=== PATIENT | female | born 1950 | race Hispanic/Latino ===

== ENCOUNTER 2018-02-27 06:37 | Outpatient (CLI) | payer MEDICARE | END 2018-02-27 06:38 | disposition home or self-care (01) | LOC: BICULT 06:37 | PROVIDERS: ATTEND Nurse Practitioner Family | DX: N93.8 Other specified abnormal uterine and vaginal bleeding (principal); N88.8 Other specified noninflammatory disorders of cervix uteri | CPT/HCPCS: 76856 ==

== ENCOUNTER 2018-05-10 09:55 | Emergency (ER) | payer MEDICARE ==
[2018-05-10] MEDS ORDERED: Meclizine HCl 25 MG TAB ONE (10:42)
[2018-05-10 10:46] LABS: #Basophils 0.1 thou/uL (0.0-0.2); #Eosinphils 0.1 thou/uL (0.0-0.7); #Lymphocytes 1.4 thou/uL (1.20-3.40); #Monocytes 0.3 thou/uL (0.11-0.59); #Neutrophils 6.8 thou/uL (1.40-6.50); %Basophils 0.7 % (0.0-1.0); %Eosinophils 1.4 % (0.0-10.0); %Lymphocytes 16.1 % (21.0-51.0); %Monocytes 3.8 % (0.0-10.0); Hemoglobin 13.7 g/dL (12.0-16.0); Mean Corpuscular HGB CONC 30.7 g/dL (32.0-36.0); Mean Corpuscular Hemoglobin 26.8 pg (27.0-31.0); Mean Corpuscular Volume 87.3 fL (78.0-98.0); Mean Platelet Volume 9.3 fL (7.4-10.4); Platelet Count 243 thou/uL (130-400); RBC Distribution Width 13.1 % (11.5-14.5); Red Blood Cell (RBC) Count 5.11 mill/uL (4.20-5.40); White Blood Cell (WBC) Count 8.8 thou/uL (4.8-10.8)
[2018-05-10] MEDS ORDERED: Ondansetron ODT 4 MG TAB ONE ×2 (10:46→10:47)
[2018-05-10 11:13] LABS: Troponin I 0.011 ng/mL (< 0.028)
[2018-05-10 11:17] LABS: ALT (SGPT) 19 U/L (8-55); AST (SGOT) 20 U/L (5-34); Albumin 3.9 g/dL (3.4-4.8); Alkaline Phosphatase 86 U/L (40-150); Anion Gap 14 mmol/L (10-20); BUN (Urea Nitrogen) 13 mg/dL (9.8-20.1); Bilirubin, Total 0.4 mg/dL (0.2-1.2); Calc. Creatinine Clearance 0 mL/min (70-130); Calcium 9.3 mg/dL (7.8-10.44); Carbon Dioxide 27 mmol/L (23-31); Chloride 101 mmol/L (98-107); Estimated GFR-MDRD 55; Globulin 4.2 g/dL (2.4-3.5); Glucose 149 mg/dL (80-115); Potassium 3.6 mmol/L (3.5-5.1); Protein, Total 8.1 g/dL (6.0-8.3); Sodium 138 mmol/L (136-145)
--- NOTE | 2018-05-10 12:17 | RAD ---
CHEST 1 VIEW: Date: 05/10/18 HISTORY: Dizziness, high blood pressure, nausea, and vomiting. COMPARISON: Radiograph from 2011. FINDINGS: Heart size enlarged. Mild pulmonary venous congestion. No pneumothorax or large effusion. IMPRESSION: Cardiomegaly and mild pulmonary venous congestion. POS: OFF
--- NOTE | 2018-05-10 12:28 | CT ---
BRAIN CT WITHOUT IV CONTRAST: History: 67-year-old female with history of dizziness when standing, room spinning, left ear pain with hearing changes for 3 months. 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 FINDINGS: No focal mass or midline shift. No intra or extraaxial hemorrhage. Sinuses and mastoids are clear. Th e sella turcica appears to be at least borderline enlarged and has a somewhat empty appearance, possi andres related to at least a partially empty sella, not completely evaluated on this CT, if that is a cl inical concern, a follow up MRI study might be of benefit. IMPRESSION: No significant acute intracranial process. No mass or bleed. Borderline sized possibly at least parti ally empty sella. POS: [facility]
== END 2018-05-10 13:00 | disposition home or self-care (01) ==
LOC: ERS 09:55
DX: H81.392 Other peripheral vertigo, left ear (principal); I10 Essential (primary) hypertension; Z86.73 Personal history of transient ischemic attack (TIA), and cerebral infarction without residual deficits
CPT/HCPCS: 70450; 71045; 80053; 84484; 85025; 93005; 94760; Q0162

== ENCOUNTER 2019-12-05 12:09 | Emergency (ER) | payer MEDICARE ==
[2019-12-05] MEDS ORDERED: Acetaminophen 500 MG TAB ONE (13:22)
[2019-12-05 13:26] LABS: #Eosinphils 0.1 thou/uL (0.0-0.7); #Lymphocytes 1.1 thou/uL (1.20-3.40); #Monocytes 0.7 thou/uL (0.11-0.59); #Neutrophils 7.8 thou/uL (1.40-6.50); %Basophils 0.4 % (0.0-1.0); %Eosinophils 1.2 % (0.0-10.0); %Lymphocytes 11.6 % (21.0-51.0); %Monocytes 6.7 % (0.0-10.0); %Neutrophils 80.2 % (42.0-75.0); Hemoglobin 12.7 g/dL (12.0-16.0); Mean Corpuscular HGB CONC 31.4 g/dL (32.0-36.0); Mean Corpuscular Hemoglobin 27.9 pg (27.0-31.0); Mean Corpuscular Volume 88.8 fL (78.0-98.0); Mean Platelet Volume 9.4 fL (7.4-10.4); Platelet Count 224 thou/uL (130-400); RBC Distribution Width 13.5 % (11.5-14.5); Red Blood Cell (RBC) Count 4.54 mill/uL (4.20-5.40); White Blood Cell (WBC) Count 9.7 thou/uL (4.8-10.8)
--- NOTE | 2019-12-05 14:07 | ULT ---
DOPPLER VENOUS ULTRASOUND BOTH LOWER EXTREMITIES: 12/05/19 INDICATIONS: Both lower extremity redness, pain and edema. TECHNIQUE: Calderon scale, color Doppler, and vascular duplex with spectral analysis was performed of the deep venou s structures of both lower extremities. The common femoral vein, superficial femoral vein, popliteal vein, posterior tibial vein, proximal greater saphenous, and proximal profunda veins were assessed bi laterally. FINDINGS: There is normal compression, flow, and augmentation seen within the deep venous structures of both lo wer extremities. IMPRESSION: No acute DVT within both lower extremities. POS: [facility]
[2019-12-05 14:09] LABS: ALT (SGPT) 15 U/L (8-55); AST (SGOT) 21 U/L (5-34); Albumin 4.1 g/dL (3.4-4.8); Alkaline Phosphatase 86 U/L (40-110); Anion Gap 13 mmol/L (10-20); BUN (Urea Nitrogen) 14 mg/dL (9.8-20.1); Bilirubin, Total 0.4 mg/dL (0.2-1.2); Calc. Creatinine Clearance 0 mL/min (70-130); Calcium 9.4 mg/dL (7.8-10.44); Carbon Dioxide 30 mmol/L (23-31); Chloride 100 mmol/L (98-107); Estimated GFR-MDRD 53; Globulin 3.9 g/dL (2.4-3.5); Glucose 108 mg/dL (83-110); Sodium 139 mmol/L (136-145)
== END 2019-12-05 14:58 | disposition home or self-care (01) ==
LOC: ERS 12:09
DX: L03.115 Cellulitis of right lower limb (principal); I10 Essential (primary) hypertension; Z79.899 Other long term (current) drug therapy
CPT/HCPCS: 80053; 83880; 84484; 85025; 93005; 93970